=== PATIENT | male | born 1995 | race Caucasian/White ===

== ENCOUNTER → 2019-08-14 11:25 | Outpatient (BNVA) | payer OTHER, SELFPAY | PROVIDERS: Referring Provider Family Medicine; Visit Provider Family Medicine | DX: T79.6XXA Traumatic ischemia of muscle, initial encounter (principal); E86.0 Dehydration | CPT/HCPCS: 80053; 81000; 82550; 85025 ==

== ENCOUNTER 2021-05-31 16:23 | Outpatient (CLI) | payer OTHER, SELFPAY | END 2021-05-31 16:24 | disposition home or self-care (01) | LOC: LAB 16:27 | PROVIDERS: Visit Provider Registered Nurse | DX: N18.31 Chronic kidney disease, stage 3a (principal) | CPT/HCPCS: 80053; 81000; 82043; 82306; 82310; 82570; 83970; 84156; 85025 ==